=== PATIENT | female | born 1990 | race Caucasian/White ===

== ENCOUNTER 2024-12-05 00:38 | Emergency (ER) | payer OTHER ==
[~2024-12-05] VITALS: Ht 162.6 cm; Wt 64.0 kg
[2024-12-05 00:40] VITALS: TEMP 36.9; O2SAT 99
[2024-12-05] MEDS: SODIUM CHLORIDE 0.9% 1,000 ML IV ONE (01:28)
[2024-12-05] MEDS: ONDANSETRON HCL 4MG/2ML INJ IV STA (01:28)
[2024-12-05 01:45] LABS: BASOPHILS % 0.5 % (0.0-2.0); EOSINOPHILS % 0.4 % (0.0-5.0); HEMATOCRIT. 40.4 % (36.0-48.0); HEMOGLOBIN. 13.8 g/dL (12.0-16.0); LYMPHOCYTES % 19.7 % (20.0-50.0); MEAN CORPUSCULAR HEMOGLOBIN 31.6 pg (28.0-32.0); MEAN CORPUSCULAR HGB CONC 34.1 g/dL (31.0-37.0); MEAN CORPUSCULAR VOLUME 92.5 fL (81.0-99.0); MEAN PLATELET VOLUME 6.9 fl (7.4-10.4); MONOCYTES % 5.3 % (2.0-8.0); NEUTROPHILS % 74.1 % (40.0-76.0); PLATELET 348 x1000/uL (130-400); RED BLOOD CELL COUNT 4.36 mill/uL (4.2-5.4); WHITE BLOOD COUNT 9.2 x1000/uL (4.5-11.0)
[2024-12-05 01:52] LABS: CHLORIDE 105 mEq/L (98-107); POTASSIUM 3.3 mEq/L (3.5-5.1); SODIUM 138 mEq/L (136-145)
[2024-12-05 01:53] LABS: CARBON DIOXIDE 24 mEq/L (21-32)
[2024-12-05 01:54] LABS: CALCIUM 8.7 mg/dL (8.7-10.4)
[2024-12-05] MEDS ORDERED: ONDA4TAB50 MT (01:57)
[2024-12-05 01:58] LABS: CREATININE 0.8 mg/dL (0.6-1.0); GLUCOSE 117 mg/dL (70-105)
[2024-12-05 01:59] LABS: ETHANOL BLOOD 167 mg/dL (<10); UREA NITROGEN BLOOD 14 mg/dL (9-23)
[2024-12-05 02:00] LABS: ACETAMINOPHEN < 2 ug/mL (10-30)
[2024-12-05 02:01] VITALS: BP 118/66; PULSE 69; RESP 15; O2SAT 99
== END 2024-12-05 02:10 | disposition home or self-care (01) ==
LOC: ER 00:38
DX: R11.2 Nausea with vomiting, unspecified (principal); Z79.899 Other long term (current) drug therapy
CPT/HCPCS: 80048; 80307; 80329; 80320; 85025; 36415; 96361; 96374; 99283; J2405; J7030; Z7610 ×2; G0480